=== PATIENT | female | born 1980 | race Hispanic/Latino ===

== ENCOUNTER 2020-04-14 21:01 | Emergency (ER) | payer BC ==
[2020-04-14 21:42] LABS: BASOPHILS % (AUTO) 0.5 % (0.0-5.0); EOSINOPHILS % (AUTO) 1.8 % (0.0-8.0); HEMATOCRIT 38.3 % (36-48); LYMPHOCYTES % (AUTO) 11.2 % (21.0-51.0); MEAN CORPUSCULAR HEMOGLOBIN 29.8 pg (27.0-33.0); MEAN CORPUSCULAR HGB CONC 34.2 g/dL (32.0-36.0); MONOCYTES % (AUTO) 6.4 % (3.0-13.0); NEUTROPHILS % (AUTO) 79.7 % (40.0-77.0); PLATELET COUNT (AUTO) 296 K/uL (130-400); RED CELL DISTRIBUTION WIDTH 12.1 % (11.0-15.5); WHITE BLOOD COUNT (AUTO) 11.9 K/uL (4.8-10.8)
[2020-04-14 21:44] LABS: APPEARANCE,URINE Clear (CLEAR); BILIRUBIN,URINE Negative (NEGATIVE); COLOR,URINE Yellow (YELLOW); GLUCOSE, URINE (UA) Negative (NEGATIVE); KETONES,URINE Negative (NEGATIVE); LEUKOCYTE ESTERASE ,URINE Negative (NEGATIVE); NITRATE,URINE Negative (NEGATIVE); OCCULT BLOOD,URINE Moderate (NEGATIVE); PROTEIN,URINE Negative (NEGATIVE); UROBILINOGEN,URINE 0.2 mg/dL (0.2-1.0)
[2020-04-14] MEDS ORDERED: KETOROLAC 30MG VIAL (30MG/ML) ONE (21:48)
[2020-04-14] MEDS ORDERED: PHENAZOPYRIDINE HCL 200 MG TABLET ONE (21:48)
[2020-04-14 21:51] LABS: HCG,QUAL RESULT NEGATIVE (NEGATIVE)
[2020-04-14 21:57] LABS: WBC,URINE 0-1 /HPF (0-1)
[2020-04-14 21:58] LABS: BACTERIA,URINE Rare /HPF (None Seen); MUCUS,URINE Rare LPF (None Seen); SQUAMOUS EPITHELIAL CELL,UR Few /HPF (0-2)
[2020-04-14 22:10] LABS: CREATININE 0.9 mg/dL (0.5-1.5); POTASSIUM 4.4 mmol/L (3.5-5.1)
[2020-04-14 22:15] LABS: ALBUMIN 4.1 g/dL (3.5-5.0); BILIRUBIN,TOTAL 0.2 mg/dL (0.2-1.0); TOTAL PROTEIN, SERUM 7.6 g/dL (6.0-8.3)
[2020-04-14] MEDS ORDERED: TAMSULOSIN HCL 0.4 MG CAP.ER.24H ONE (22:40)
== END 2020-04-14 23:14 | disposition home or self-care (01) ==
LOC: EDH 21:01
DX: N20.0 Calculus of kidney (principal); N13.9 Obstructive and reflux uropathy, unspecified
CPT/HCPCS: 36415; 74176; 80053; 81001; 81025; 85025; 96372; 99284; J1885

== ENCOUNTER 2021-10-09 15:13 | Emergency (ER) | payer BC ==
[~2021-10-09] VITALS: Ht 152.4 cm; Wt 66.7 kg
[2021-10-09 15:14] VITALS: BP 128/63
[2021-10-09 15:54] LABS: APPEARANCE,URINE CLOUDY (CLEAR); BILIRUBIN,URINE NEGATIVE (NEGATIVE); COLOR,URINE YELLOW (YELLOW); GLUCOSE, URINE (UA) NEGATIVE (NEGATIVE); KETONES,URINE 5 mg/dL (NEGATIVE); LEUKOCYTE ESTERASE ,URINE NEGATIVE (NEGATIVE); NITRATE,URINE NEGATIVE (NEGATIVE); OCCULT BLOOD,URINE TRACE-INTACT (NEGATIVE); PH,URINE 5.5 (5.0-8.0); PROTEIN,URINE NEGATIVE (NEGATIVE)
[2021-10-09 16:00] LABS: HCG,QUALITATIVE URINE NEGATIVE (NEGATIVE)
[2021-10-09 16:11] LABS: BASOPHILS % (AUTO) 0.8 % (0.0-5.0); EOSINOPHILS % (AUTO) 3.6 % (0.0-8.0); HEMATOCRIT 38.8 % (36-48); MEAN CORPUSCULAR HEMOGLOBIN 28.8 pg (27.0-33.0); MEAN CORPUSCULAR VOLUME 84.7 fL (79-99); MONOCYTES % (AUTO) 8.1 % (3.0-13.0); NEUTROPHILS % (AUTO) 72.1 % (40.0-77.0); PLATELET COUNT (AUTO) 344 K/uL (130-400); RED BLOOD CELL COUNT(AUTO) 4.58 MIL/uL (4.00-5.50); RED CELL DISTRIBUTION WIDTH 12.6 % (11.0-15.5); WHITE BLOOD COUNT (AUTO) 12.4 K/uL (4.8-10.8)
[2021-10-09 16:14] LABS: BACTERIA,URINE Few /HPF (None Seen); MUCUS,URINE Moderate LPF (None Seen); SPERM,URINE Few /HPF (None Seen); SQUAMOUS EPITHELIAL CELL,UR Many /HPF (0-2)
[2021-10-09 16:17] LABS: CREATININE 0.9 mg/dL (0.5-1.5)
[2021-10-09 16:21] LABS: ALBUMIN 3.7 g/dL (3.5-5.0); TOTAL PROTEIN, SERUM 7.2 g/dL (6.0-8.3)
[2021-10-09] MEDS ORDERED: CEFTRIAXONE 1G VIAL ONE (17:26)
[2021-10-09] MEDS ORDERED: PHENAZOPYRIDINE HCL 200 MG TABLET PO ONE (17:30)
[2021-10-09] MEDS ORDERED: CEFTRIAXONE 1G VIAL IM ONE (17:30)
[2021-10-09] MEDS ORDERED: CEPH500B PO (17:46)
[2021-10-09] MEDS ORDERED: PHEN-847 PO (17:46)
[2021-10-09] MEDS ORDERED: LACT10PA5 PO (17:46)
== END 2021-10-09 17:57 | disposition home or self-care (01) ==
LOC: EDH 15:13
DX: M54.50 Low back pain, unspecified (principal); N39.0 Urinary tract infection, site not specified; K59.01 Slow transit constipation; Z79.899 Other long term (current) drug therapy
CPT/HCPCS: 99284; 80053; 85025; 81001; 81025; 36415; 72100; 96372; J0696

== ENCOUNTER 2023-02-18 12:28 | Emergency (ER) | payer BC ==
[~2023-02-18] VITALS: Ht 152.4 cm; Wt 76.7 kg
[~2023-02-18 12:28] MED LIST: CEPH500B PO; LACT10PA5 PO; PHEN-847 PO
[2023-02-18 12:40] VITALS: BP 140/55; PULSE 70; RESP 16; O2SAT 99
== END 2023-02-18 13:20 | disposition home or self-care (01) ==
LOC: EDH 12:28
DX: H61.23 Impacted cerumen, bilateral (principal); Z79.899 Other long term (current) drug therapy
CPT/HCPCS: 99282

== ENCOUNTER 2023-10-27 21:15 | Emergency (ER) | payer BC ==
[~2023-10-27] VITALS: Ht 152.4 cm; Wt 72.6 kg
[2023-10-27 21:42] LABS: BASOPHILS % (AUTO) 0.9 % (0.0-5.0); EOSINOPHILS # (AUTO) 0.53 K/uL (0.00-0.70); EOSINOPHILS % (AUTO) 4.8 % (0.0-8.0); HEMATOCRIT 41.1 % (36-48); IMMATURE GRANULOCYTE ABSOLUTE 0.02 K/uL (0-1); LYMPHOCYTES # (AUTO) 3.2 K/uL (1.0-4.8); LYMPHOCYTES % (AUTO) 29.3 % (21.0-51.0); MEAN CORPUSCULAR HEMOGLOBIN 30.1 pg (27.0-33.0); MEAN CORPUSCULAR HGB CONC 34.3 g/dL (32.0-36.0); MEAN CORPUSCULAR VOLUME 87.6 fL (79-99); MONOCYTES % (AUTO) 9.2 % (3.0-13.0); NEUTROPHILS # (AUTO) 6.1 K/uL (1.8-7.7); NEUTROPHILS % (AUTO) 55.6 % (40.0-77.0); PLATELET COUNT (AUTO) 347 K/uL (130-400); RED BLOOD CELL COUNT(AUTO) 4.69 MIL/uL (4.00-5.50)
[2023-10-27 21:52] LABS: CREATININE 0.9 mg/dL (0.5-1.0); POTASSIUM 3.9 mmol/L (3.5-5.1)
[2023-10-27 22:01] LABS: B-TYPE NATRIURETIC PEPTIDE 28 pg/mL (0-100)
[2023-10-27 22:13] LABS: APPEARANCE,URINE CLOUDY (CLEAR); BILIRUBIN,URINE NEGATIVE (NEGATIVE); COLOR,URINE LIGHT-YELLOW (YELLOW); GLUCOSE, URINE (UA) NEGATIVE (NEGATIVE); KETONES,URINE NEGATIVE (NEGATIVE); LEUKOCYTE ESTERASE ,URINE NEGATIVE Leu/uL (NEGATIVE); NITRATE,URINE NEGATIVE (NEGATIVE); PH,URINE 5.5 (5.0-8.0); PROTEIN,URINE 10 mg/dL (NEGATIVE)
[2023-10-27 22:14] LABS: ADD UA MICROSCOPIC YES
[2023-10-27 22:15] LABS: BACTERIA,URINE RARE /HPF (None Seen); CALCIUM OXALATE CRYSTALS,UR FEW /LPF (None Seen); MUCUS,URINE RARE LPF (None Seen); SQUAMOUS EPITHELIAL CELL,UR MOD /HPF (0-2)
[2023-10-27] MEDS: KETOROLAC 30MG VIAL (30MG/ML) IVP ONE (22:53)
[2023-10-27] MEDS: ASPIRIN 81MG CHEW TAB PO SCH (22:53)
[2023-10-28 00:14] VITALS: BP 122/71; PULSE 74; RESP 15; O2SAT 98
[2023-10-28] MEDS ORDERED: ASPIRIN 81MG CHEW TAB PO SCH (09:00)
== END 2023-10-28 00:27 | disposition home or self-care (01) ==
LOC: EDH 21:15
DX: R07.89 Other chest pain (principal); F41.9 Anxiety disorder, unspecified; Z79.899 Other long term (current) drug therapy
CPT/HCPCS: 99284; 96374; 71045; 82550; 84484 ×3; 80048; 83880; 85025; 87086; 81001; 81025; 36415; 93005; J1885